=== PATIENT | female | born 1960 | race Two or more races ===

== ENCOUNTER 2023-01-16 14:40 | Emergency (ER) | payer MEDICAID, OTHER ==
[~2023-01-16] VITALS: Ht 157.5 cm; Wt 54.0 kg
[2023-01-16 15:00] VITALS: BP 119/72
[2023-01-16] MEDS ORDERED: CLINDAMYCIN 600MG IV 50 ML IV ONE (15:30)
[2023-01-16] MEDS ORDERED: cefTRIAXone 1GM/50ML D5W 50 ML IV ONE (15:30)
[2023-01-16] MEDS ORDERED: CEPH-510 PO (16:45)
[2023-01-16] MEDS ORDERED: CLIN300C8 PO (16:45)
== END 2023-01-16 20:17 | disposition home or self-care (01) ==
LOC: ER 14:40
DX: L03.115 Cellulitis of right lower limb (principal); F19.90 Other psychoactive substance use, unspecified, uncomplicated; E11.9 Type 2 diabetes mellitus without complications; Z89.511 Acquired absence of right leg below knee; Z89.611 Acquired absence of right leg above knee

== ENCOUNTER 2024-12-08 02:31 | Emergency (ER) | payer MEDICAID ==
[~2024-12-08] VITALS: Ht 157.5 cm; Wt 61.3 kg
[~2024-12-08 02:31] MED LIST: CEPH-510 PO; CLIN1CAP70 PO
[2024-12-08] MEDS: methylPREDNISolone SOD SUCC 125 MG/2 ML VL IV ONE (02:51)
[2024-12-08] MEDS: ALBUTEROL SULF 2.5 MG/0.5ML(0.5%) NEB SOLN ONE (02:51)
--- NOTE | 2024-12-08 02:55 | ED.PDOC ---
SOB-HPI HPI Comments 64 year old female who came to emergency room via EMS with shortness of breath. Patient has history of the diabetes and COPD, has been short of breath the past few days, however at 11:00 p.m. noted worsening of shortness a breath with wheezing. Complaining also of right sided chest tightness. Patient admits to have been using methamphetamines earlier. Upon arrival paramedics blood sugar of 240, and was saturating 86% on room air. Patient was placed on CPAP, in breathing treatments given while en route. Chief Complaint: Shortness of Breath Time Seen by MD: 03:03 Reviewed notes: Nurses Notes Information Source: Patient Mode of Arrival: Ambulatory Severity: Moderate Timing: Hours Duration: Since onset Context: At Rest, With Light Exertion History of: Asthma Prehospital treatment: Breathing Tx, C-Pap, Oxygen Modifying Factors: Nothing Associated Signs and Symptoms: Wheeze, Cough Quality: Tightness Radiation: No Radiation Location: Chest (R), Chest (L) If cough with SOB: Non-Productive Past Medical History PAST MEDICAL HISTORY: COPD, DM Surgical History: BKA MRI ASSISTANT History: Denies all MRI ASSISTANT Hx Family History Family History: Reviewed,noncontributory to illness Social History Smoker: Non-Smoker Alcohol: Denies ETOH Use Drugs: Methamphetamine Lives In: Home Constitutional: denies: chills, diaphoresis, fatigue, fever, malaise, sweats, weakness, others EENTM: denies: blurred vision, double vision, ear bleeding, ear discharge, ear drainage, ear pain, ear ringing, eye pain, eye redness, hearing loss, mouth pain, mouth swelling, nasal discharge, nose bleeding, nose congestion, nose pain, photophobia, tearing, throat pain, throat swelling, voice changes, others Respiratory: reports: SOB at rest, shortness of breath, wheezing; denies: cough, hemoptysis, orthopnea, SOB with excertion, stridor, others Cardiovascular: reports: chest pain; denies: dizzy spells, diaphoresis, Dyspnea on exertion, edema, irregular heart beat, left arm pain, lightheadedness, palpitations, PND, syncope, others Gastrointestinal: denies: abdomen distended, abdominal pain, blood streaked bowels, constipated, diarrhea, dysphagia, difficulty swallowing, hematemesis, melena, nausea, poor appetite, poor fluid intake, rectal bleeding, rectal pain, vomiting, others Genitourinary: denies: abnormal vagina bleeding, burning, dyspareunia, dysuria, flank pain, frequency, hematuria, incontinence, pain, , vagina discharge, urgency, others Neurological: denies: dizziness, fainting, headache, left sided numbness, left sided weakness, numbness, paresthesia, pre-existing deficit, right sided numbness, right sided weakness, seizure, speech problems, tingling, tremors, weakness, others Musculoskeletal: denies: back pain, gout, joint pain, joint swelling, muscle pain, muscle stiffness, neck pain, others Integumetry: denies: bruises, change in color, change in hair/nails, dryness, laceration, lesions, lumps, rash, wounds, others Allergic/Immunocompromised: denies: Difficulty Healing, Frequent Infections, Hives, Itching, others Hematologic/Lymphatic: denies: anemia, blood clots, easy bleeding, easy bruising, swollen glands, others Endocrine: denies: excessive hunger, excessive sweating, excessive thirst, excessive urination, flushing, intolerance to cold, intolerance to heat, unexplained weight gain, unexplained weight loss, others Psychiatric: denies: anxiety, bipolar disorder, depression, hopeless, panic disorder, schizophrenia, sleepless, suicidal, others Physical Exam General Appearance: No Apparent Distress, Normal HEENT: Normal ENT Inspection, Pharynx Normal, TMs Normal Neck: Full Range of Motion, Non-Tender, Normal, Normal Inspection Respiratory: Accessory Muscle Use, Respiratory Distress, Wheezing Cardiovascular: No Edema, No JVD, No Murmur, No Gallop, Normal Peripheral Pulses, Regular Rate/Rhythm Breast Exam: Deferred Gastrointestinal: No Organomegaly, Non Tender, No Pulsatile Mass, Normal Bowel Sounds, Soft Genitalia: Deferred Pelvic: Deferred Rectal: Deferred Extremities: No calf tenderness, Normal capillary refill, Normal inspection, Normal range of motion, Non-tender, No pedal edema Musculoskeletal : Apperance: Normal Neurologic: Alert, tar worker II-XII nml as Tested, No Motor Deficits, Normal Affect, Normal Mood, No Sensory Deficits Cerebellar Function: Normal Reflexes: Normal Skin: Dry, Normal Color, Warm Lymphatic: No Adenopathy Was a procedure done? Was a procedure done?: No Differential Dx Differential Diagnosis: CHF, COPD, Hyperventilation, Myocardial infarction, Panic Attack, Pneumonia, Respiratory Distress X-Ray, Labs, Meds, VS Vital Signs Date Time Temp Pulse Resp B/P (MAP) Pulse Ox O2 Delivery O2 Flow Rate FiO2 12/08/24 04:01 102 12/08/24 03:29 101 28 93 Nasal Cannula* 6 44 12/08/24 03:29 93 Nasal Cannula* 6 44 12/08/24 03:20 97.9 102 27 151/88 (109) 92 97.9 12/08/24 02:41 101 12/08/24 02:40 102 151/58 Facial BiPAP Mask 40 12/08/24 02:40 35 97 Bi-Pap+ 40 40 12/08/24 02:40 97.8 101 27 151/58 (89) 96 97.8 12/08/24 02:36 97.8 100 30 169/104 (125) 96 97.8 12/08/24 02:36 30 96 Bi-Pap+ 40 40 Lab Test 12/08/24 03:57 12/08/24 03:00 12/08/24 02:52 Range/Units Troponin I High Sensitivity 56 *H 63 *H </=34 ng/L White Blood Count 6.5 4.4-10.8 10^3/uL Red Blood Count 4.90 4.0-5.20 10^6/uL Hemoglobin 14.3 12.2-16.2 g/dL Hematocrit 43.3 36.0-46.0 % Mean Corpuscular Volume 88.4 80.0-100.0 fL Mean Corpuscular Hemoglobin 29.2 28.0-32.0 pg Mean Corpuscular Hemoglobin Concent 33.0 32.0-36.0 g/dL Red Cell Distribution Width 17.2 H 11.8-14.3 % Platelet Count 217 140-450 10^3/uL Mean Platelet Volume 8.5 6.9-10.8 fL Neutrophils (%) (Auto) 67.5 37.0-80.0 % Lymphocytes (%) (Auto) 22.7 10.0-50.0 % Monocytes (%) (Auto) 7.0 0.0-12.0 % Eosinophils (%) (Auto) 2.0 0.0-7.0 % Basophils (%) (Auto) 0.8 0.0-2.0 % Neutrophils # (Auto) 4.4 1.6-8.6 10 ^3/uL Lymphocytes # (Auto) 1.5 0.4-5.4 10 ^3/uL Monocytes # (Auto) 0.5 0-1.3 10 ^3/uL Eosinophils # (Auto) 0.1 0-0.8 10 ^3/uL Basophils # (Auto) 0 0-0.2 10 ^3/uL Nucleated Red Blood Cells 0.1 % Sodium Level 142 136-145 mmol/L Potassium Level 4.4 3.5-5.1 mmol/L Chloride Level 107 98-107 mmol/L Carbon Dioxide Level 27 20-31 mmol/L Anion Gap 8 5-15 Blood Urea Nitrogen 27 H 9-23 mg/dL Creatinine 1.07 H 0.550-1.02 mg/dL Glomerular Filtration Rate Calc 58 >90 mL/min BUN/Creatinine Ratio 25.2 H 10.0-20.0 Serum Glucose 166 H 74-106 mg/dL Calcium Level 9.4 8.7-10.4 mg/dL Blood Gas Specimen Type Venous Blood Gas Sample Site Vbg - n/a Blood Gas Patient Temperature 37.0 Arterial Blood Date Drawn [id number] Bryce Test N/a Venous Blood pH 7.340 7.320-7.430 Venous Blood pCO2 at Patient Temp 47.0 38.0-54.0 mmHg Venous Blood pO2 at Patient Temp < 36.5 23.0-48.0 mmHg Venous Blood HCO3 24.8 22.0-29.0 mmol/L Venous Blood Base Excess -1.4 -2.0-3.0 mmol/L Blood Gas Modality Mask - bipap FiO2 % 40.0 Current Medications Medications (Trade) Dose Ordered Sig/Sancho Route Start Time Stop Time Status Last Admin Methylprednisolone Sodium Succinate (Solu Medrol) 62.5 mg ONCE ONCE IV 12/08/24 02:45 12/08/24 03:01 DC 12/08/24 02:51 Albuterol (Ventolin Medneb) 10 mg ONCE ONCE NEB 12/08/24 02:45 12/08/24 03:01 DC 12/08/24 03:01 Ipratropium Fellows (Atrovent Medneb) 1 mg ONCE ONCE NEB 12/08/24 02:45 12/08/24 03:01 DC 12/08/24 03:01 Time of 1ST Reevaluation: 02:46 Reevaluation 1ST: Unchanged Patient Education/Counseling: Diagnosis, Treatment Family Education/Counseling: No Family Present Departure 1 Departure Time of Disposition: 04:51 (Patient used meth. Her troponins are downtrending. Patient is chest pain-free after some nebs and steroids she has returned to baseline. We will discharge patient home with outpatient follow up) Impression: Primary Impression: COPD with exacerbation Additional Impression: Polysubstance abuse Disposition: 01 HOME / SELF CARE / HOMELESS Condition: Stable Additional Instructions: It is important not to use drugs. You should continue to take your regular medication as directed. If your symptoms worsen or if any other concerns please return to the emergency room. Discharged With: Self Critical Care Note Critical Care Time?: Yes (35 min-critical care time only) Critical care comment: Shortness of breath Authorized and Performed by: Nkechi Odonnell MD Total critical care time: Approximately 37 minutes Due to a high probability of clinically significant, life threatening deterioration, the patient required my highest level of preparedness to intervene emergently and I personally spent this critical care time directly and personally managing the patient. This critical care time included obtaining a history; examining the patient; pulse oximetry; ordering and review of studies; arranging urgent treatment with development of a management plan; evaluation of patient's response to treatment; frequent reassessment; and, discussions with o ther providers. This critical care time was performed to assess and manage the high probability of imminent, life-threatening deterioration that could result in multi-organ failure. It was exclusive of separately billable procedures and treating other patients and teaching time. Please see my other sections and the rest of the note for further information on patient assessment and treatment. Stability Stability form required: No Heart Score Heart Score: Heart Score Response (Comments) Value History N/A 0 EKG N/A 0 Age N/A 0 Risk Factors N/A 0 Troponin N/A 0 Total 0 I personally scribed for NKECHI ODONNELL MD (NATALIE) on 12/08/24 at 02:55. Electronically submitted by Cholo Young ([employer]). I personally scribed for NKECHI ODONNELL MD (NATALIE) on 12/08/24 at 03:03. Electronically submitted by Cholo Young ([employer]). NKECHI ODONNELL MD Dec 08, 2024 02:55
[2024-12-08] MEDS: IPRATROPIUM BROM 0.5 MG/2.5ML INH SOL NEB ONE (03:01)
[2024-12-08] MEDS: ALBUTEROL SULF 2.5 MG/0.5ML(0.5%) NEB SOLN NEB ONE (03:01)
--- NOTE | 2024-12-08 03:15 | DVH ---
CHEST RADIOGRAPH Indication: sob Technique: Single frontal view of the chest was obtained COMPARISON: None FINDINGS: Lines and Tubes: None Lungs: There is diffuse increased reticulonodular opacity throughout all lung zones consistent with i ncreased prominence of the pulmonary vasculature no evidence of focal consolidation. Pleura: No effusion. No pneumothorax. Cardiomediastinal contours: The heart is enlarged. Bones: Unremarkable IMPRESSION: 1. Cardiomegaly and diffuse increased prominence of the pulmonary vasculature.
[2024-12-08 03:27] LABS: Basophils # (auto) 0 10 ^3/uL (0-0.2); Basophils % (auto) 0.8 % (0.0-2.0); Eosinophils # (auto) 0.1 10 ^3/uL (0-0.8); Hematocrit 43.3 % (36.0-46.0); Hemoglobin 14.3 g/dL (12.2-16.2); Lymphocytes # (auto) 1.5 10 ^3/uL (0.4-5.4); Lymphocytes % (auto) 22.7 % (10.0-50.0); Mean Corpuscular Hemoglobin 29.2 pg (28.0-32.0); Mean Corpuscular Volume 88.4 fL (80.0-100.0); Monocytes # (auto) 0.5 10 ^3/uL (0-1.3); Neutrophils # (auto) 4.4 10 ^3/uL (1.6-8.6); Neutrophils % (auto) 67.5 % (37.0-80.0); Nucleated Red Blood Cells % 0.1 %; Platelet Count (auto) 217 10^3/uL (140-450); Red Cell Distribution Width 17.2 % (11.8-14.3); White Blood Cell 6.5 10^3/uL (4.4-10.8)
[2024-12-08 03:29] VITALS: PULSE 101; RESP 28; O2SAT 93
[2024-12-08 03:36] LABS: Chloride 107 mmol/L (98-107); Potassium 4.4 mmol/L (3.5-5.1); Sodium 142 mmol/L (136-145)
[2024-12-08 03:37] LABS: Anion Gap 8 (5-15); Calcium 9.4 mg/dL (8.7-10.4); Carbon Dioxide 27 mmol/L (20-31)
[2024-12-08 03:42] LABS: BUN/Creatinine Ratio 25.2 (10.0-20.0)
[2024-12-08 03:43] LABS: Blood Urea Nitrogen 27 mg/dL (9-23); Glucose 166 mg/dL (74-106)
[2024-12-08 06:40] VITALS: O2SAT 92
--- NOTE | 2024-12-08 07:18 | ECG ---
[facility] Test Date: 2024-12-08 Test Time: 02:41:16 Pat Name: MEDArchon Department: ER Room: Gender: F Manager Wind: : 1960 Requested By: NKECHI DIA Order Number: [id number] Reading MD: Ryne Bob Measurements Intervals Calcium Rate: 101 P: 67 OK: 152 QRS: 80 QRSD: 93 T: 254 QT: 343 QTc: 445 Interpretive Statements Sinus tachycardia Repol abnrm suggests ischemia, lateral leads Electronically Signed On 12-08-2024 16:15:05 PDT by Ryne Bob Please click the below link to view image of tracing.
[2024-12-08 07:35] VITALS: PULSE 100; RESP 16; O2SAT 95
[2024-12-08] MEDS: cloNIDine HCL 0.1 MG TAB PO ONE (10:48)
[2024-12-08 12:00] VITALS: BP 160/82; PULSE 86; RESP 15; TEMP 98; O2SAT 93
== END 2024-12-08 12:20 | disposition home or self-care (01) ==
LOC: EDBD 02:31 → ER 02:31
DX: J44.1 Chronic obstructive pulmonary disease with (acute) exacerbation (principal); F19.10 Other psychoactive substance abuse, uncomplicated; E11.9 Type 2 diabetes mellitus without complications; Z98.890 Other specified postprocedural states
CPT/HCPCS: 36415; 36600; 71045; 80048; 82805; 84484; 85025; 93005; 94640; 94660; 96374; 99291; J2919

== ENCOUNTER 2024-12-25 16:30 | Inpatient (IN) | payer MEDICAID ==
[~2024-12-25] VITALS: Ht 157.5 cm; Wt 62.0 kg
--- NOTE | 2024-12-25 16:42 | ED.PDOC ---
SOB-HPI HPI Comments Christian HPI: Extremely Poor Historian. Initial Vitals-BP 114/65 -HR Patient states she does not take any medicine at home. Patient states she ran out of supplemental oxygen yesterday. 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 Methamphetamine abuse, tobacco abuse Most recent methamphetamine use three days ago. REVIEW OF SYSTEMS: CONSTITUTIONAL: Denies acute: fever, diaphoresis, chills, generalized weakness. HEAD: Denies acute: headache, photophobia Eyes: Denies acute: Double vision, vision loss, eye pain, eye discharge. EARS: Denies acute: tinnitus, hearing loss, ear discharge, ear pain, THROAT: Denies acute: sore throat, swelling, difficulty swallowing , pain with swallowing, change in voice. NECK: Denies acute: neck pain, neck swelling, stiff neck. HEART: Denies acute : chest pain, palpitations, LUNGS: Denies acute: , wheezing, hemoptysis ABDOMEN: Denies acute: abdominal pain, Nausea, Vomiting, diarrhea, melena , hematemesis, hematochezia SKIN: Denies acute: rash, redness, lesions, itchiness. EXTREMITIES: Denies acute: calf pain, numbness, tingling, weakness, denies pain in extremity. Denies acute: Low back pain. Neuro: Denies acute: focal neurological deficit, motor or sensory focal neurological deficit, tremors, seizure like activity, confusion, dizziness, change in mental status, loss of bowel or bladder function, cauda equina like symptoms. : Denies acute: dysuria, hematuria, flank pain, increase in urinary frequency. PSYCH: Denies acute: hallucination, suicidal ideation, homicidal ideation. FEMALE: Denies acute: abnormal vaginal bleeding, foul odor, unusual discharge. PHYSICAL EXAM: General: ----uxyi-qy-ehrsqcqo----acute distress, awake and alert. Head: normocephalic, atraumatic. Neck: supple, trachea is midline, no swelling. Throat: Normal phonation. Eyes:, no erythema, no purulent discharge, no proptosis, no icterus. Heart: regular rate, regular rhythm, no significant murmur appreciated. Lungs: Moderate apparent respiratory distress, Able to speak in full sentences. No wheezing, no rhonchi, no crackles. No stridors Clear to auscultation bilaterally. Abdomen: non tender to palpation, non distended, soft, no guarding, no rebound, + bowel sounds. Neuro: Awake, Alert, oriented to name, self, situation, follows commands GCS=15. Speech is normal. Skin: no petechia, no purpura, no cyanosis, non-pale, not jaundice. Lower extremities: --1/4- Pitting edema no deformity, no focal swelling, no calf TTP. Noted below the right knee amputation. Makes eye contact. moves all four extremities. Face: no apparent facial droop. No nuchal rigidity, Kernig's sign, Brudzinski's sign, no meningeal signs. ED COURSE: Time Seen by MD: 16:30 Reviewed notes: Nurses Notes, Allergies Information Source: Patient Mode of Arrival: Wheelchair Past Medical History PAST MEDICAL HISTORY: CHF ("possibly"), COPD, CVA, DM Surgical History: BKA DATA ANALYSIS MANAGER History: Denies all DATA ANALYSIS MANAGER Hx Family History Family History: Reviewed,noncontributory to illness Social History Smoker: Non-Smoker Alcohol: Denies ETOH Use Drugs: Methamphetamine Lives In: Home Was a procedure done? Was a procedure done?: No Differential Dx Differential Diagnosis: Other (DDx include ACS, unstable angina, anxiety, PE, pneumothroax, neoplasm, cardiac ischemia, COPD, asthma, CHF, pleural effusion, tobacco abuse, pneumonia, hypoxia, hypercapnia, anemia., infection/sepsis., pulmonary edema. Asthma, Cardiac tamponade, infection.) X-Ray, Labs, Meds, VS Vital Signs Date Time Temp Pulse Resp B/P (MAP) Pulse Ox O2 Delivery O2 Flow Rate FiO2 12/25/24 16:53 22 92 Nasal Cannula* 6 44 12/25/24 16:52 28 92 Room Air* 0 21 12/25/24 16:51 97 12/25/24 16:46 98.8 86 28 114/65 (81) 92 98.8 Lab Test 12/25/24 18:03 12/25/24 17:02 Range/Units Troponin I High Sensitivity 69 *H 61 *H </=34 ng/L White Blood Count 7.5 4.4-10.8 10^3/uL Red Blood Count 4.80 4.0-5.20 10^6/uL Hemoglobin 13.5 12.2-16.2 g/dL Hematocrit 42.0 36.0-46.0 % Mean Corpuscular Volume 87.5 80.0-100.0 fL Mean Corpuscular Hemoglobin 28.1 28.0-32.0 pg Mean Corpuscular Hemoglobin Concent 32.1 32.0-36.0 g/dL Red Cell Distribution Width 15.6 H 11.8-14.3 % Platelet Count 314 140-450 10^3/uL Mean Platelet Volume 8.1 6.9-10.8 fL Neutrophils (%) (Auto) 71.4 37.0-80.0 % Lymphocytes (%) (Auto) 14.0 10.0-50.0 % Monocytes (%) (Auto) 12.6 H 0.0-12.0 % Eosinophils (%) (Auto) 1.5 0.0-7.0 % Basophils (%) (Auto) 0.5 0.0-2.0 % Neutrophils # (Auto) 5.4 1.6-8.6 10 ^3/uL Lymphocytes # (Auto) 1.1 0.4-5.4 10 ^3/uL Monocytes # (Auto) 0.9 0-1.3 10 ^3/uL Eosinophils # (Auto) 0.1 0-0.8 10 ^3/uL Basophils # (Auto) 0 0-0.2 10 ^3/uL Nucleated Red Blood Cells 0.0 % D-Dimer, Quantitative 1.22 H 0.0-0.49 mg/L FEU Sodium Level 137 136-145 mmol/L Potassium Level 4.9 3.5-5.1 mmol/L Chloride Level 104 98-107 mmol/L Carbon Dioxide Level 25 20-31 mmol/L Anion Gap 8 5-15 Blood Urea Nitrogen 24 H 9-23 mg/dL Creatinine 1.22 H 0.550-1.02 mg/dL Glomerular Filtration Rate Calc 50 >90 mL/min BUN/Creatinine Ratio 19.7 10.0-20.0 Serum Glucose 159 H 74-106 mg/dL Hemoglobin A1c 7.4 H <5.7 % A1C Lactic Acid Level 1.6 0.4-2.0 mmol/L Calcium Level 8.1 L 8.7-10.4 mg/dL Magnesium Level 1.5 L 1.6-2.6 mg/dL Total Bilirubin 0.2 0.2-1.0 mg/dL Aspartate Amino Transferase (AST) 17 13-40 U/L Alanine Aminotransferase (ALT) 11 7-40 U/L Alkaline Phosphatase 70 46-116 U/L B-Type Natriuretic Peptide 3008.64 0-100 pg/mL Total Protein 5.0 L 5.7-8.2 g/dL Albumin 2.8 L 3.2-4.8 g/dL Thyroid Stimulating Hormone (TSH) 1.86 0.55-4.78 uIU/mL Plasma/Serum Blood Alcohol < 3.0 <10 mg/dL [place] [id number] Ph: [phone] DIAGNOSTIC IMAGING Diagnostic Imaging Report : [id number] Signed PATIENT: CASTILLO SCHILLING ACCT: [id number] UNIT: [id number] : 1960 LOC: ER ROOM / BED: / AGE / SEX: 64 / F ADM STATUS: REG ER SERVICE [id number] ORDERING PHYSICIAN: ANTONI PERALES DO PROCEDURE(s): CXRP - CHEST PORTABLE REASON: sob ORDER NUMBER(s): [id number], ACCESSION NUMBER(s): [id number] EXAM: XR Chest, 1 View CLINICAL INDICATION: sob TECHNIQUE: Frontal view of the chest. COMPARISON: XY CHEST PORTABLE on DOS: 12/08/24 FINDINGS: LUNGS AND PLEURAL SPACES: Pulmonary congestion and edema. Pneumonia cannot be excluded. No pneumothorax. HEART: Unremarkable. No cardiomegaly. MEDIASTINUM: Unremarkable. Normal mediastinal contour. BONES/JOINTS: Unremarkable. No acute fracture. OTHER FINDINGS: . IMPRESSION: Pulmonary congestion and edema. Pneumonia cannot be excluded. ATED BY: SRINI PEREIRA MD DICTATED DATE/TIME: 12/25/241740 SIGNED BY: SRINI PEREIRA MD SIGNED DATE/TIME: 12/25/241740 CC: Time of 1ST Reevaluation: 17:00 Reevaluation 1ST: Unchanged Patient Education/Counseling: Diagnosis, Treatment, Prognosis Family Education/Counseling: No Family Present Comments GIVEN THE PATIENT CHEST X-RAY REPORT POSSIBLE PNEUMONIA. ROCEPHIN WAS INITIATED. Chest x-ray shows pulmonary vascular congestion, Lasix was given. Patient presented with the above HPI.---respiratory distress---workup was initiated. patient was found with the above mentioned diagnosis. the following medications were ordered: please refer to order lists of meds and tests obtained by myself Dr. Perales. Patient ED course and VS have been stabilized. Patient has been reassessed in the ED and remained in a stable condition. Pertinent incidental findings were discussed with the patient and/or family. Patient/family voices understanding and is agreeable with plan. Patient has been observed in the ED adequate length of time to insure improvement/stability. Escalation of care considered: Consideration of escalation to observation or admission Patient was ADMITTED to the medicine team for further evaluation and treatment of their presentation. All the reports of any imaging studies that were ordered by myself were reviewed by myself. Departure 1 Departure Time of Disposition: 17:54 Impression: Primary Impression: Acute respiratory distress Additional Impressions: COPD exacerbation Hypomagnesemia Elevated troponin Pulmonary congestion Elevated d-dimer Disposition: ADMITTED INPATIENT Admit to: Tele Condition: Guarded Discharged With: Self Critical Care Note Critical Care Time?: Yes (1 hr-critical care time only) Heart Score Heart Score: Heart Score Response (Comments) Value History Moderate Suspicious 1 EKG Normal 0 Age 45-64 1 Risk Factors >3 or Hx ASHD 2 Troponin 1-2 x's Normal limit 1 Total 5 I personally scribed for ANTONI PERALES DO ([email or web address]) on 12/25/24 at 16:42. Electronically submitted by Joo Cruz ([employer]). I personally scribed for ANTONI PERALES DO ([email or web address]) on 12/25/24 at 16:48. Electronically submitted by Joo Cruz ([employer]). ANTONI PERALES DO Dec 25, 2024 16:42
[2024-12-25] MEDS ORDERED: methylPREDNISolone SOD SUCC 125 MG/2 ML VL IV ONE (16:45)
[2024-12-25 16:46] VITALS: BP 114/65; TEMP 98.8
[2024-12-25] MEDS: ALBUTEROL SULF 2.5 MG/0.5ML(0.5%) NEB SOLN NEB ONE (16:49)
[2024-12-25] MEDS: IPRATROPIUM BROM 0.5 MG/2.5ML INH SOL NEB ONE (16:50)
[2024-12-25 16:51] VITALS: PULSE 97
[2024-12-25 16:53] VITALS: RESP 22; O2SAT 92
--- NOTE | 2024-12-25 16:55 | ECG ---
[facility] Test Date: 2024-12-25 Test Time: 16:50:53 Pat Name: Ultora Department: ER Room: [address] [place] [id number] Gender: F Buffet Server: GP : 1960 Requested By: ANTONI PERALES Order Number: [id number] Reading MD: Ryne Bob Measurements Intervals [place] Rate: 97 P: 63 UT: 146 QRS: 71 QRSD: 96 T: -81 QT: 335 QTc: 426 Interpretive Statements Sinus rhythm Probable left atrial enlargement Anterior infarct, old Borderline repolarization abnormality Electronically Signed On 12-26-2024 20:56:06 PDT by Ryne Bob Please click the below link to view image of tracing.
[2024-12-25 17:34] LABS: Basophils # (auto) 0 10 ^3/uL (0-0.2); Basophils % (auto) 0.5 % (0.0-2.0); Eosinophils # (auto) 0.1 10 ^3/uL (0-0.8); Eosinophils % (auto) 1.5 % (0.0-7.0); Hemoglobin 13.5 g/dL (12.2-16.2); Lymphocytes # (auto) 1.1 10 ^3/uL (0.4-5.4); Mean Corpuscular Hemoglobin 28.1 pg (28.0-32.0); Mean Corpuscular Hgb Conc. 32.1 g/dL (32.0-36.0); Mean Corpuscular Volume 87.5 fL (80.0-100.0); Monocytes # (auto) 0.9 10 ^3/uL (0-1.3); Monocytes % (auto) 12.6 % (0.0-12.0); Neutrophils # (auto) 5.4 10 ^3/uL (1.6-8.6); Neutrophils % (auto) 71.4 % (37.0-80.0); Platelet Count (auto) 314 10^3/uL (140-450); Red Cell Distribution Width 15.6 % (11.8-14.3); White Blood Cell 7.5 10^3/uL (4.4-10.8)
--- NOTE | 2024-12-25 17:43 | DVH ---
EXAM: XR Chest, 1 View CLINICAL INDICATION: sob TECHNIQUE: Frontal view of the chest. COMPARISON: XY CHEST PORTABLE on DOS: 12/08/24 FINDINGS: LUNGS AND PLEURAL SPACES: Pulmonary congestion and edema. Pneumonia cannot be excluded. No pneumot horax. HEART: Unremarkable. No cardiomegaly. MEDIASTINUM: Unremarkable. Normal mediastinal contour. BONES/JOINTS: Unremarkable. No acute fracture. OTHER FINDINGS: . IMPRESSION: Pulmonary congestion and edema. Pneumonia cannot be excluded.
[2024-12-25 17:46] LABS: Alanine Aminotransferase 11 U/L (7-40); Alkaline Phosphatase 70 U/L (46-116); Anion Gap 8 (5-15); Aspartate Aminotransferase 17 U/L (13-40); BUN/Creatinine Ratio 19.7 (10.0-20.0); Carbon Dioxide 25 mmol/L (20-31); Chloride 104 mmol/L (98-107); Potassium 4.9 mmol/L (3.5-5.1); Sodium 137 mmol/L (136-145)
[2024-12-25 17:50] LABS: Albumin 2.8 g/dL (3.2-4.8); Bilirubin, Total 0.2 mg/dL (0.2-1.0); Blood Urea Nitrogen 24 mg/dL (9-23); Calcium 8.1 mg/dL (8.7-10.4); Glucose 159 mg/dL (74-106); Magnesium 1.5 mg/dL (1.6-2.6)
[2024-12-25] MEDS ORDERED: cefTRIAXone 1GM/50ML D5W 50 ML IV ONE ×2 (18:00→19:45)
[2024-12-25] MEDS ORDERED: FUROSEMIDE 40 MG/4 ML VIAL IV ONE ×2 (18:00→19:00)
[2024-12-25] MEDS ORDERED: ASPirin-EC 325mg tab PO ONE (18:00)
[2024-12-25] MEDS ORDERED: MAGNESIUM SULFATE 1GM/100ML 100 ML IV ONE (18:00)
[2024-12-25] MEDS ORDERED: NITROGLYCERIN 0.4 MG SL TAB SL PRN (18:45)
[2024-12-25] MEDS ORDERED: ACETAMINOPHEN 325 MG TAB PO PRN (18:45)
[2024-12-25] MEDS ORDERED: ONDANSETRON HCL 4 MG/2 ML VIAL IV PRN (18:45)
[2024-12-25] MEDS ORDERED: DOCUSATE SOD 100 MG CAP PO PRN (18:45)
[2024-12-25] MEDS ORDERED: MORPHINE SULFATE INJ 2 MG/ml SYRG IV PRN (18:45)
[2024-12-25] MEDS ORDERED: ATORVASTATIN 20 MG TAB PO ONE (19:15)
[2024-12-25] MEDS ORDERED: ASPirin 81 mg TAB PO ONE (19:15)
--- NOTE | 2024-12-25 19:32 | DVHHPRES ---
History of Present Illness Resident Creating Document: EDGARD MOORE RESIDENT History of Present Illness Patient is 64 years old female with past medical history of hypertension, diabetes mellitus type 2, heart failure, COPD poor historian came with a complaint of worsening shortness of breath for last few days. Patient was confused during history taking, poor historian. As per patient she has been having shortness of breaths for last 4 5 months which got worse for last few days. Patient complained of orthopnea, PND, bilateral leg swelling got worse lately. Patient also reported cough with greenish sputum for last couple of days but could not mentioned exact date. On further inquiry patient also e ndorsed palpitation going on for last several days. Patient is a chronic substance abuser and alcoholic, last med was 2 days before and alcohol yesterday. Initial significant lab workup revealed elevated troponin I 61> 69, elevated BNP 3008, serum creatinine 1.22, BUN 24, glucose 159, magnesium 1.5, calcium 8.1. CXR revealed pulmonary congestion and edema. 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 Gastrointestinal- denies any rectal bleeding, nausea or vomiting Musculoskeletal-denies acute joint swelling or tenderness or redness Neurological- denies acute dysarthria, dysphagia, change in vision Psychiatry- denies depression or SI or HI Skin- denies acute rash or purpura Allergies: Coded Allergies: NO KNOWN ALLERGIES (Unverified , 01/16/23) Medications Current Medications Medications Dose Ordered Sig/Sancho Route Start Time Stop Time Status Last Admin Dose Admin Sodium Chloride 10 ml Q8HR IV 12/25/24 22:00 Acetaminophen 325 mg Q4HP PRN PO 12/25/24 18:45 Ondansetron HCl 4 mg Q4HP PRN IV 12/25/24 18:45 Docusate Sodium 100 mg BIDPRN PRN PO 12/25/24 18:45 Nitroglycerin 0.4 mg Q5MINP PRN SL 12/25/24 18:45 Morphine Sulfate 2 mg Q30M PRN IV 12/25/24 18:45 Furosemide 40 mg BIDD IV 12/26/24 06:00 UNV Magnesium Sulfate/ Dextrose 100 ml @ 100 mls/hr Q1HR IV 12/25/24 20:00 12/25/24 21:59 UNV Aspirin 81 mg DAILY PO 12/26/24 10:00 UNV Atorvastatin Calcium 40 mg HS PO 12/25/24 22:00 UNV Exam Vital Signs Vital Signs Date Time Temp Pulse Resp B/P (MAP) Pulse Ox O2 Delivery O2 Flow Rate FiO2 12/25/24 16:53 22 92 Nasal Cannula* 6 44 12/25/24 16:51 97 12/25/24 16:46 98.8 114/65 (81) 98.8 Exam General examination- patient is confused, poor historian HEENT- PEERLA, -bilateral red eye++ Cardiovascular- S1-S2 audible, rate and rhythm regular, no murmur Respiratory- bilateral lung crackles++ Gastrointestinal-nontender, bowel sound+. Nondistended Musculoskeletal-no acute joint swelling or tenderness or redness Lower extremity- left lower leg edema++, right below-knee amputation Neurological- cranial nerves intact, no acute dysarthria or dysphagia Psychiatry- denies depression or SI or HI Skin- no acute rash or purpura Labs/Xrays Labs Test 12/25/24 18:03 12/25/24 17:02 Range/Units Troponin I High Sensitivity 69 *H </=34 ng/L White Blood Count 7.5 4.4-10.8 10^3/uL Red Blood Count 4.80 4.0-5.20 10^6/uL Hemoglobin 13.5 12.2-16.2 g/dL Hematocrit 42.0 36.0-46.0 % Mean Corpuscular Volume 87.5 80.0-100.0 fL Mean Corpuscular Hemoglobin 28.1 28.0-32.0 pg Mean Corpuscular Hemoglobin Concent 32.1 32.0-36.0 g/dL Red Cell Distribution Width 15.6 H 11.8-14.3 % Platelet Count 314 140-450 10^3/uL Mean Platelet Volume 8.1 6.9-10.8 fL Neutrophils (%) (Auto) 71.4 37.0-80.0 % Lymphocytes (%) (Auto) 14.0 10.0-50.0 % Monocytes (%) (Auto) 12.6 H 0.0-12.0 % Eosinophils (%) (Auto) 1.5 0.0-7.0 % Basophils (%) (Auto) 0.5 0.0-2.0 % Neutrophils # (Auto) 5.4 1.6-8.6 10 ^3/uL Lymphocytes # (Auto) 1.1 0.4-5.4 10 ^3/uL Monocytes # (Auto) 0.9 0-1.3 10 ^3/uL Eosinophils # (Auto) 0.1 0-0.8 10 ^3/uL Basophils # (Auto) 0 0-0.2 10 ^3/uL Nucleated Red Blood Cells 0.0 % Sodium Level 137 136-145 mmol/L Potassium Level 4.9 3.5-5.1 mmol/L Chloride Level 104 98-107 mmol/L Carbon Dioxide Level 25 20-31 mmol/L Anion Gap 8 5-15 Blood Urea Nitrogen 24 H 9-23 mg/dL Creatinine 1.22 H 0.550-1.02 mg/dL Glomerular Filtration Rate Calc 50 >90 mL/min BUN/Creatinine Ratio 19.7 10.0-20.0 Serum Glucose 159 H 74-106 mg/dL Lactic Acid Level 1.6 0.4-2.0 mmol/L Calcium Level 8.1 L 8.7-10.4 mg/dL Magnesium Level 1.5 L 1.6-2.6 mg/dL Total Bilirubin 0.2 0.2-1.0 mg/dL Aspartate Amino Transferase (AST) 17 13-40 U/L Alanine Aminotransferase (ALT) 11 7-40 U/L Alkaline Phosphatase 70 46-116 U/L B-Type Natriuretic Peptide 3008.64 0-100 pg/mL Total Protein 5.0 L 5.7-8.2 g/dL Albumin 2.8 L 3.2-4.8 g/dL Assessment/Plan Assessment/Plan Assessment and plan # acute hypoxic respiratory failure likely due to acute on chronic heart failure/pneumonia # acute heart failure systolic/diastolic # toxic encephalopathy likely due to alcoholism/substance abuse #NSTEMI Type 2 likely Demand led # ANABEL likely due to VMN # leg edema likely due to acute on chronic heart failure # diabetes mellitus type 2 # history of hypertension # suspected alcohol intoxication # substance abuse Plan Lasix 40 mg IV b.i.d. Aspirin 81 mg p.o. daily Atorvastatin 40 mg p.o. q.h.s. Pantoprazole 40 mg IV daily Ceftriaxone 1 g IV daily Doxycycline 100 IV b.i.d. Imdur 30 mg p.o. daily Hydralazine 10 mg p.o. t.i.d. Pending echo 2D Pending cardiology consult Continue other medication as prescribed Goals of care, Code status ; discussed with >15 minutes PUD prophylaxis: Pantoprazole DVT prophylaxis: Lovenox Plan discussed with Dr. Wesley , nursing staff, patient Total time spent on patient evaluation, chart review, assessment and plan, discussion discussion >40 minutes Plan discussed with: Patient, Other (RN) My Orders Orders - EDGARD MOORE RESIDENT Procedure Category Date Status Time Admit ADMIT 12/25/24 Transmitted 18:31 Allergies KASHIF 12/25/24 In Process 18:31 Code Status CODE 12/25/24 Transmitted 18:31 Sodium Chloride Lock PHA 12/25/24 In Process (Saline Lock Ns) 22:00 Acetaminophen Tablet PHA 12/25/24 In Process (Tylenol Tablet) 18:45 Ondansetron Hcl PHA 12/25/24 In Process (Zofran) 18:45 Docusate Sodium PHA 12/25/24 In Process Capsule (Colace 18:45 Complete Blood Count LAB 12/26/24 Verified 04:00 Comprehensive LAB 12/26/24 Verified Metabolic Panel 04:00 Npo (Nothing By DIET 12/26/24 Transmitted Mouth) Diet Breakfast Echo 2d Mode Cardiac US 12/25/24 Logged DOP 18:31 Nitroglycerin PHA 12/25/24 In Process Sublingual (Ntrostat 18:45 Morphine Sulfate PHA 12/25/24 In Process Injection 18:45 Oxygen By Nasal RT 12/25/24 Transmitted Cannula 18:31 Stat Ekg For Chest KASHIF 12/25/24 In Process Pain 18:31 Notify Md Of Changes KASHIF 12/25/24 In Process From Base 18:31 Facilities Planner For KASHIF 12/25/24 In Process 24 Hours 18:31 Emergency Dysrhythmia KASHIF 12/25/24 In Process Protocol 18:31 Rhythm Strips Once KASHIF 12/25/24 In Process Every Shift 18:31 Furosemide Injection PHA 12/25/24 Logged (Lasix Injection) 19:00 Furosemide Injection PHA 12/26/24 Logged (Lasix Injection) 06:00 Blood Alcohol LAB 12/25/24 Logged 19:00 Thyroid Stimulating LAB 12/25/24 Logged Hormone 19:00 Hemoglobin A1c LAB 12/25/24 Logged 19:00 Magnesium Sulfate PHA 12/25/24 Logged 1gm/100ml 20:00 Aspirin Tablet PHA 12/25/24 Logged 19:15 Aspirin Tablet PHA 12/26/24 Logged 10:00 Atorvastatin (Lipitor) PHA 12/25/24 Logged 19:15 Atorvastatin (Lipitor) PHA 12/25/24 Logged 22:00 Covid19 Antigen [place] LAB 12/25/24 Logged Rapid Influenza A&B LAB 12/25/24 Logged 19:04 D-Dimer LAB 12/25/24 Logged 19:04 Date of Service: Dec 25, 2024 Billing Provider: KIRA WESLEY MD Common Visit Codes: [id number] INP/OBS CARE (HIGH) EDGARD MOORE RESIDENT Dec 25, 2024 19:32 KIRA WESLEY MD Dec 26, 2024 09:47
[2024-12-25] MEDS ORDERED: DOXYCYCLINE 100MG/100ML 100 ML IV ONE (19:45)
[2024-12-25] MEDS ORDERED: hydrALAZINE HCL 10 MG TAB PO ONE (19:45)
[2024-12-25] MEDS ORDERED: ISOSORBIDE MONONITRATE ER 60 MG TAB PO ONE (19:45)
[2024-12-25] MEDS ORDERED: MAGNESIUM SULFATE 1GM/100ML 100 ML IV SCH (20:00)
[2024-12-25] MEDS ORDERED: ENOXAPARIN SOD 40 MG/0.4 ML SYRINGE SC ONE (20:15)
[2024-12-25] MEDS ORDERED: SODIUM CHLOR 0.9% PF (SALINE LOCK) 10ML VIAL/SYR IV SCH (22:00)
[2024-12-25] MEDS ORDERED: ATORVASTATIN 20 MG TAB PO SCH (22:00)
[2024-12-26] MEDS ORDERED: FUROSEMIDE 40 MG/4 ML VIAL IV SCH (06:00)
[2024-12-26] MEDS ORDERED: hydrALAZINE HCL 10 MG TAB PO SCH (06:00)
--- NOTE | 2024-12-26 06:26 | DVHDSRES ---
Discharge Summary Date of Admission Resident Creating Document: EDGARD MOORE RESIDENT Dec 25, 2024 at 18:31 Date of Discharge: Dec 25, 2024 Admitting Diagnosis Acute hypoxic respiratory failure likely due to acute exertional CHF and toxic encephalopathy likely due to polysubstance abuse Labs/Diagnostic Data: Laboratory Results Test 12/25/24 20:05 12/25/24 17:02 Troponin I High Sensitivity 71 ng/L (</=34) White Blood Count 7.5 10^3/uL (4.4-10.8) Red Blood Count 4.80 10^6/uL (4.0-5.20) Hemoglobin 13.5 g/dL (12.2-16.2) Hematocrit 42.0 % (36.0-46.0) Mean Corpuscular Volume 87.5 fL (80.0-100.0) Mean Corpuscular Hemoglobin 28.1 pg (28.0-32.0) Mean Corpuscular Hemoglobin Concent 32.1 g/dL (32.0-36.0) Red Cell Distribution Width 15.6 % (11.8-14.3) Platelet Count 314 10^3/uL (140-450) Mean Platelet Volume 8.1 fL (6.9-10.8) Neutrophils (%) (Auto) 71.4 % (37.0-80.0) Lymphocytes (%) (Auto) 14.0 % (10.0-50.0) Monocytes (%) (Auto) 12.6 % (0.0-12.0) Eosinophils (%) (Auto) 1.5 % (0.0-7.0) Basophils (%) (Auto) 0.5 % (0.0-2.0) Neutrophils # (Auto) 5.4 10 ^3/uL (1.6-8.6) Lymphocytes # (Auto) 1.1 10 ^3/uL (0.4-5.4) Monocytes # (Auto) 0.9 10 ^3/uL (0-1.3) Eosinophils # (Auto) 0.1 10 ^3/uL (0-0.8) Basophils # (Auto) 0 10 ^3/uL (0-0.2) Nucleated Red Blood Cells 0.0 % D-Dimer, Quantitative 1.22 mg/L FEU (0.0-0.49) Sodium Level 137 mmol/L (136-145) Potassium Level 4.9 mmol/L (3.5-5.1) Chloride Level 104 mmol/L (98-107) Carbon Dioxide Level 25 mmol/L (20-31) Anion Gap 8 (5-15) Blood Urea Nitrogen 24 mg/dL (9-23) Creatinine 1.22 mg/dL (0.550-1.02) Glomerular Filtration Rate Calc 50 mL/min (>90) BUN/Creatinine Ratio 19.7 (10.0-20.0) Serum Glucose 159 mg/dL (74-106) Hemoglobin A1c 7.4 % A1C (<5.7) Lactic Acid Level 1.6 mmol/L (0.4-2.0) Calcium Level 8.1 mg/dL (8.7-10.4) Magnesium Level 1.5 mg/dL (1.6-2.6) Total Bilirubin 0.2 mg/dL (0.2-1.0) Aspartate Amino Transferase (AST) 17 U/L (13-40) Alanine Aminotransferase (ALT) 11 U/L (7-40) Alkaline Phosphatase 70 U/L (46-116) B-Type Natriuretic Peptide 3008.64 pg/mL (0-100) Total Protein 5.0 g/dL (5.7-8.2) Albumin 2.8 g/dL (3.2-4.8) Thyroid Stimulating Hormone (TSH) 1.86 uIU/mL (0.55-4.78) Other Laboratory Tests 12/25/24 17:02 Brief Hx & Hospital Course: Patient is 64 years old female with past medical history of hypertension, diabetes mellitus type 2, heart failure, COPD poor historian came with a complaint of worsening shortness of breath for last few days. Patient was confused during history taking, poor historian. As per patient she has been having shortness of breaths for last 4 5 months which got worse for last few days. Patient complained of orthopnea, PND, bilateral leg swelling got worse lately. Patient also reported cough with greenish sputum for last couple of days but could not mentioned exact date. On further inquiry patient also endorsed palpitation going on for last several days. Patient is a chronic substance abuser and alcoholic, last med was 2 days before and alcohol yesterday. Initial significant lab workup revealed elevated troponin I 61> 69, elevated BNP 3008, serum creatinine 1.22, BUN 24, glucose 159, magnesium 1.5, calcium 8.1. CXR revealed pulmonary congestion and edema. Pending echo 2D report and UDS. Patient left AMA. patient was advised about the consequence of leaving AMA on health. Patient's condition undetermined on discharge Operations or Procedures [address] [address] Ph: [phone] DIAGNOSTIC IMAGING Diagnostic Imaging Report : [id number] Signed PATIENT: CASTILLO SCHILLING ACCT: [id number] UNIT: [id number] : 1960 LOC: ER ROOM / BED: / AGE / SEX: 64 / F ADM STATUS: REG ER SERVICE 37 ORDERING PHYSICIAN: ANTONI PERALES DO PROCEDURE(s): CXRP - CHEST PORTABLE REASON: sob ORDER NUMBER(s): [id number], ACCESSION NUMBER(s): [id number] EXAM: XR Chest, 1 View CLINICAL INDICATION: sob TECHNIQUE: Frontal view of the chest. COMPARISON: XY CHEST PORTABLE on DOS: 12/08/24 FINDINGS: LUNGS AND PLEURAL SPACES: Pulmonary congestion and edema. Pneumonia cannot be excluded. No pneumothorax. HEART: Unremarkable. No cardiomegaly. MEDIASTINUM: Unremarkable. Normal mediastinal contour. BONES/JOINTS: Unremarkable. No acute fracture. OTHER FINDINGS: . IMPRESSION: Pulmonary congestion and edema. Pneumonia cannot be excluded. ATED BY: SRINI PEREIRA MD DICTATED DATE/TIME: 12/25/241740 SIGNED BY: SRINI PEREIRA MD SIGNED DATE/TIME: 12/25/241740 CC: Condition at Discharge: Undetermined Final Diagnosis/Problems List # acute hypoxic respiratory failure likely due to acute on chronic heart failure/pneumonia # acute heart failure systolic/diastolic # toxic encephalopathy likely due to alcoholism/substance abuse #NSTEMI Type 2 likely Demand led # ANABEL likely due to VMN # leg edema likely due to acute on chronic heart failure # diabetes mellitus type 2 # history of hypertension # suspected alcohol intoxication # polysubstance abuse Discharge Disposition: AMA Discharge Instruct/Medications Medications: As per EMS Discharge Statement: "Patient was advised to return to the ER or call 911 if any headaches, dizziness, shortness of breath, chest pain, abdominal pain, bleeding, fevers, or worsening of medical condition. Patient was counseled about treatment plan, medications, possible side effects, patientverbalized understanding. All questions were answered to the best of my ability. This discharge took greater then 30 minutes in planning, reviewing documentation, counseling the patient, and discussing with other team members." ASSESSMENT ASSESSMENT Assessment Date of Service: Dec 25, 2024 Billing Provider: KIRA WESLEY MD Common Visit Codes: [id number] DISCH DAY <30MIN EDGARD MOORE RESIDENT Dec 26, 2024 06:26 KIRA WESLEY MD Dec 26, 2024 10:04
[2024-12-26] MEDS ORDERED: cefTRIAXone 1GM/50ML D5W 50 ML IV SCH (09:00)
[2024-12-26] MEDS ORDERED: DOXYCYCLINE 100MG/100ML 100 ML IV SCH (10:00)
[2024-12-26] MEDS ORDERED: ASPirin 81 mg TAB PO SCH (10:00)
[2024-12-26] MEDS ORDERED: ISOSORBIDE MONONITRATE ER 60 MG TAB PO SCH (10:00)
[2024-12-26] MEDS ORDERED: ENOXAPARIN SOD 40 MG/0.4 ML SYRINGE SC SCH (10:00)
== END 2024-12-25 20:46 | disposition left against medical advice (07) | DRG 194 ==
LOC: ER 16:30 → OVERFLOW 18:31
PROVIDERS: ADMIT Internal Medicine; ATTEND Emergency Medicine
DX: I11.0 Hypertensive heart disease with heart failure (principal); J96.01 Acute respiratory failure with hypoxia; N17.0 Acute kidney failure with tubular necrosis; G92.8 Other toxic encephalopathy; J18.9 Pneumonia, unspecified organism; I21.A1 Myocardial infarction type 2; F19.10 Other psychoactive substance abuse, uncomplicated; Z53.29 Procedure and treatment not carried out because of patient's decision for other reasons; J44.1 Chronic obstructive pulmonary disease with (acute) exacerbation; E83.42 Hypomagnesemia; E11.9 Type 2 diabetes mellitus without complications; F10.229 Alcohol dependence with intoxication, unspecified; I50.43 Acute on chronic combined systolic (congestive) and diastolic (congestive) heart failure; T50.995A Adverse effect of other drugs, medicaments and biological substances, initial encounter; Z89.511 Acquired absence of right leg below knee; Z79.899 Other long term (current) drug therapy; Y92.89 Other specified places as the place of occurrence of the external cause; Y90.0 Blood alcohol level of less than 20 mg/100 ml; T51.94XA Toxic effect of unspecified alcohol, undetermined, initial encounter
CPT/HCPCS: 36415; 71045; 80053; 80320; 83036; 83605; 83735; 83880; 84443; 84484; 85025; 85379; 93005; 94640; G0378